=== PATIENT | male | born 1950 | race Caucasian/White ===

== ENCOUNTER → 2018-08-20 | Outpatient (CLI) | payer MEDICARE, OTHER ==
[~2018-08-20] VITALS: Ht 170.2 cm; Wt 80.3 kg
[2018-08-20] VITALS (7 sets, daily range): BP systolic 103–121; BP diastolic 66–77
[~2018-08-20] MED LIST: CENTRUM SILVER1 EAC4 PO; COREG6.25 MG; FISH OIL 1,001000 M2 PO; KEFLEX500 MG PO; LIPITOR10 MG PO; LISINOPRIL5 MG; NITROGLYCERIN0.4 MG; NOHOMEMEDICATIONS; VITAMIN D2000 UNIT PO
[2018-08-20 10:06] LABS: HEMATOCRIT 46.6 % (42.0-52.0); HEMOGLOBIN 15.6 gm/dL (14.0-18.0); MCH 30.7 pg (26.0-34.0); MCHC 33.6 g/dL (28.0-37.0); MCV 91.5 fL (80.0-100.0); MPV 9.6 fl. (7.2-11.1); RBC 5.09 mil/uL (4.50-6.00); RDW-CV 14.5 % (10.5-14.5)
[2018-08-20 10:11] LABS: ALBUMIN 3.9 g/dL (3.4-5.0); ALKALINE PHOSPHATASE 79 U/L (46-116); ANION GAP 9 mmol/L (7-16); BUN 14 mg/dL (7-18); CALCIUM 8.7 mg/dL (8.5-10.1); CHLORIDE 105 mmol/L (98-107); CHOLESTEROL 181 mg/dL (<200); CO2 27 mmol/L (21-32); CREATININE 1.1 mg/dL (0.6-1.3); GLUCOSE 109 mg/dL (70-99); HDL CHOLESTEROL 56 mg/dL (>40); LDL CHOLESTEROL 105 mg/dL (<100); POTASSIUM 4.4 mmol/L (3.5-5.1); SERUM ASSESSMENT Clear; SGOT 15 U/L (15-37); SGPT 24 U/L (30-65); SODIUM 141 mmol/L (136-145); TC:HDL 3.2 Ratio (Not establshd); TOTAL BILIRUBIN 0.5 mg/dL (<0.1-1.0); TOTAL PROTEIN 7.6 g/dL (6.4-8.2); TRIGLYCERIDE 104 mg/dL (<150); VLDL 21 mg/dL (<40)
[2018-08-20 10:13] LABS: APTT 27.2 Seconds (25.0-31.3); PROTIME 9.8 Seconds (9.20-11.50)
--- NOTE | 2018-08-20 16:46 | CARD ---
[address] [address] CARDIAC CATH REPORT Name: JULITO RINALDI Room: [facility] MCarmen#: [id number] Admission: 08/20/18 Attend Phys: Jaime Beckwith MD, Discharge: Date of : 54 Report #: [id number] THIS REPORT FOR: //name// APPROVED REPORT Study performed: 08/20/2018 11:19:18 Patient Details Patient Status: Out-Patient Room #: The patient is a 68 year-old male Event Personnel Michelle Bolton RN RN, Jaime Beckwith Public Aid Eligibility Assistant, Sky Chau (R) Monitor, Geraldo Means ROAD GRADER Scrub Procedures Performed Left Heart Cath w/or w/o Coronaries Indication Abnormal ECG, Chest pain Risk Factors Hypercholesterolemia Procedure Narrative The patient was brought electively to the Cardiac Catheterization Laboratory and was prepped and draped in a sterile manner. The right femoral was infiltrated with 2% Lidocaine subcutaneous anesthesia. A [place] 6 FR sheath was inserted into the right femoral artery. Coronary angiography was performed using coronary diagnostic catheters. The right coronary system was accessed and visualized with a Diagnostic JR4 catheter. The left coronary system was accessed and visualized with a Diagnostic JL4 catheter. The left ventricle was accessed and visualized with a Diagnostic Straight Pigtail catheter. Left ventricular/Aortic Valve gradient assessed via catheter pullback. Closure device was deployed with a Fr MynxGrip 6/7F. The patient tolerated the procedure well and there were no complications associated with the procedure. There was no hematoma. Intraoperative Conscious Sedation Sedation start time: 11:47 Case end Time: 12:15 Fentanyl 50 mcg Vers[place] 2 [place] [address] CARDIAC CATH REPORT Name: JULITO RINALDI Room: [facility]#: [id number] Admission: 08/20/18 Attend Phys: Jaime Beckwith MD, Discharge: Date of : 54 Report #: [id number] Fluoro Time: 3.1 minutes Dose: DAP 88328 cGycm2 1069 mGy Contrast Type and Amount: Visipaque 120 ml Diagnostic Cath Left Main 0% narrowing LAD 75% tubular proximal leftmid vessel stenosis with 40% proximal diagonal narrowing Circumflex 80% proximal narrowing of this nondominant vessel Right Coronary Dominant vessel with total mid vessel occlusion and intraluminal thrombus with [id number] collaterals filling the prominent distal right coronary system Left Ventriculography The left ventricle is normal in size with contractility. The left ventricular ejection fraction is estimated to be 40%. Left ventricular wall motion abnormalities are present. There is no mitral insufficiency. There is akinesis of the basilar one half of the inferior wall Hemodynamics The aortic pressure is 111/60 mmHg with a mean of 80 mmHg. The left ventricular pressure is 110/1 mmHg with a mean of mmHg. The left ventricular end diastolic pressure is 9 mmHg. There was no gradient across the aortic valve upon pullback. Conclusion #1 significant multivessel coronary artery disease characterized by the following: A 75% tubular proximalmid vessel LAD stenosis with 40% proximal diagonal narrowing B 80% narrowing of the proximal portion of the nondominant circumflex C 100% occlusion of the midportion of the right coronary artery with intraluminal thrombus; there were prominent xhkn-ae-wexbx collaterals via the septum filling a prominent distal right system #2 moderate reduction in global left ventricular systolic function, estimated ejection fraction 40% with akinesis of the basilar one half of the Inferior wall #3 normal left[place] [address] CARDIAC CATH REPORT Name: JULITO RINALDI Room: [facility]#: [id number] Admission: 08/20/18 Attend Phys: Jaime Beckwith MD, Discharge: Date of : 54 Report #: [id number] Recommendations Cardiac Risk Reduction Program CABG Diagnostic Cath Approved by: Jaime Beckwith MD Date/Time: 08/20/2018 16:45:14 <ELECTRONICALLY SIGNED> By: Jaime Beckwith MD, [facility] 08/20/18 1646 1646 [id number] Beckwith MD, FACC /INF
--- NOTE | 2018-08-21 12:28 | EKG ---
[place] [address] ELECTROCARDIOGRAM REPORT Name: JULITO RINALDI Room: [facility]#: [id number] Admission: 08/20/18 Attend Phys: Jaime Beckwith MD, Discharge: Date of : 54 Report #: [id number] THIS REPORT FOR: //name// [facility] Test Date: 2018-08-20 Test Time: 09:54:57 Pat Name: JULITO RINALDI Department: Room: Gender: M Program Production Specialist: [facility] : 1950 Requested By: Jaime Beckwith Order Number: [id number] Reading MD: Ryan Jackson Measurements Intervals [place] Rate: 53 P: 27 OK: 174 QRS: -9 QRSD: 123 T: -42 QT: 453 QTc: 426 Interpretive Statements Sinus rhythm Nonspecific intraventricular conduction delay Inferior infarct, age indeterminate No previous ECG available for comparison Electronically Signed On 08-21-2018 12:28:43 CDT by Ryan Jackson [email or web address] <ELECTRONICALLY SIGNED> By: Ryan Jackson MD, [facility] 08/21/18 1228 0954 Ryan Jackson MD, FACC /EPI
--- NOTE | 2018-08-21 12:30 | EKG ---
[place] [address] ELECTROCARDIOGRAM REPORT Name: JULITO RINALDI Room: [facility]#: [id number] Admission: 08/20/18 Attend Phys: Jaime Beckwith MD, Discharge: Date of : 54 Report #: [id number] THIS REPORT FOR: //name// [facility] Test Date: 2018-08-20 Test Time: 12:42:43 Pat Name: JULITO RINALDI Department: Room: Gender: M Rental Clerk: : 1950 Requested By: Jaime Beckwith Order Number: [id number] Reading MD: Ryan Jackson Measurements Intervals [place] Rate: 51 P: 29 ME: 183 QRS: -19 QRSD: 117 T: -45 QT: 479 QTc: 442 Interpretive Statements Sinus rhythm Nonspecific intraventricular conduction delay Inferior infarct, age indeterminate Lateral leads are also involved No previous ECG available for comparison Electronically Signed On 08-21-2018 12:30:10 CDT by Ryan Jackson [email or web address] <ELECTRONICALLY SIGNED> By: Ryan Jackson MD, [facility] 08/21/18 1230 1242 1242 Ryan Jackson MD, [facility] /EPI
== END | disposition home or self-care (01) ==
LOC: M.CL 09:10
PROVIDERS: Internal Medicine
DX: I25.10 Atherosclerotic heart disease of native coronary artery without angina pectoris (principal); E78.00 Pure hypercholesterolemia, unspecified; I25.2 Old myocardial infarction; Z95.1 Presence of aortocoronary bypass graft; Z88.0 Allergy status to penicillin; Z79.899 Other long term (current) drug therapy; Z98.890 Other specified postprocedural states

== ENCOUNTER → 2018-09-03 | Outpatient (CLI) | payer MEDICARE, OTHER | LOC: M.ULTRA 12:47 | DX: R20.0 Anesthesia of skin (principal); I73.9 Peripheral vascular disease, unspecified; Z88.0 Allergy status to penicillin ==